=== PATIENT | male | born 1945 | race Caucasian/White ===

== ENCOUNTER 2021-01-07 07:13 | Day surgery (SDC) | payer MEDICARE ==
[2021-01-06 12:05] VITALS: BMI 32.5
[2021-01-07 08:04] LABS: Sodium 142 mmol/L (136-145)
[2021-01-07 08:05] LABS: Anion Gap 18 mmol/L (10-20); BUN (Urea Nitrogen) 40 mg/dL (8.4-25.7); Calc. Creatinine Clearance 54 mL/min (70-130); Calcium 9.9 mg/dL (7.8-10.44); Carbon Dioxide 22 mmol/L (23-31); Chloride 106 mmol/L (98-107); Glucose 189 mg/dL (83-110); Potassium 4.4 mmol/L (3.5-5.1)
[2021-01-07] MEDS ORDERED: Bupivacaine PF 0.5% 30 ML VIAL ONE (09:32)
[2021-01-07] MEDS ORDERED: Thrombin 5000 UNITS/5 ML VIAL ONE (09:32)
[2021-01-07] MEDS ORDERED: EPINEPHrine 1 MG/ML AMP ONE (09:32)
[2021-01-07] MEDS ORDERED: Fentanyl 100 MCG/2 ML VIAL ONE ×2 (09:40→13:32)
[2021-01-07] MEDS ORDERED: PROPOFOL 200 MG/20 ML VIAL ONE (09:46)
[2021-01-07] MEDS ORDERED: PHENYLEPHRINE-NS 100 MCG/ML 10 ML SYRINGE ONE (09:46)
[2021-01-07] MEDS ORDERED: Lidocaine 1% PF 5 ML VIAL ONE (09:46)
[2021-01-07] MEDS ORDERED: Glycopyrrolate 0.2 MG/ML 5 ML SYRINGE ONE (09:46)
[2021-01-07] MEDS ORDERED: ePHEDrine 50 MG/ML VIAL ONE (09:46)
[2021-01-07] MEDS ORDERED: Ondansetron PF 4 MG/2 ML Vial ONE (09:46)
[2021-01-07] MEDS ORDERED: Rocuronium Bromide 10 MG/ML (10ML VIAL) ONE (09:46)
[2021-01-07] MEDS ORDERED: Tamsulosin HCl 0.4 MG CAP ONE (13:30)
[2021-01-07] MEDS ORDERED: HYDROcodone/Acetaminophen 5/325 mg Tablet ONE ×2 (16:22→19:20)
[2021-01-07] MEDS ORDERED: tiZANidine HCl 4 MG TAB ONE (18:12)
== END 2021-01-07 19:50 | disposition home or self-care (01) ==
LOC: SDC 07:13
PROVIDERS: ATTEND Neurological Surgery
PROC: 0SG0071 Fusion of Lumbar Vertebral Joint with Autologous Tissue Substitute, Posterior Approach, Posterior Column, Open Approach (ICD-10-PCS; principal; 2021-01-07)
DX: M47.816 Spondylosis without myelopathy or radiculopathy, lumbar region (principal); M51.36 Other intervertebral disc degeneration, lumbar region; M19.90 Unspecified osteoarthritis, unspecified site; E78.00 Pure hypercholesterolemia, unspecified; G89.4 Chronic pain syndrome; E11.9 Type 2 diabetes mellitus without complications; I10 Essential (primary) hypertension; E78.5 Hyperlipidemia, unspecified; G47.30 Sleep apnea, unspecified; F17.220 Nicotine dependence, chewing tobacco, uncomplicated; N40.0 Benign prostatic hyperplasia without lower urinary tract symptoms; Z79.84 Long term (current) use of oral hypoglycemic drugs; Z79.899 Other long term (current) drug therapy; Z98.1 Arthrodesis status
CPT/HCPCS: 76000; 80048; 93005; 93010; C1713; C1768; J0171; J0690; J2405; J2704; J3010; J3490; S0020